=== PATIENT | male | born 1960 | race African-American/Black ===

== ENCOUNTER 2018-12-27 05:01 | Emergency (ER) | payer OTHER ==
[~2018-12-27] VITALS: Ht 175.3 cm; Wt 77.1 kg
[2018-12-27 05:10] VITALS: BP 140/90
--- NOTE | 2018-12-27 05:14 | Emergency Room Report ---
History of Present Illness General Chief Complaint: Chest Pain Source: Patient Present Illness HPI This is a 58-year-old male with no past medical history. He presents with chief complaint of chest pain. He was arrested and was at the police station when he start complaint of chest pain. He then became uncooperative with EMS. EKG was unremarkable. He refused to give any history. Here he told me that he has chest pain. Initially told me it was chronic he has it all the time. Then he said that he developed when he was at the police station. After that he refused to answer any other question. He is point all over his chest is area of pain. Unknown radiation. Unknown diaphoresis. Unknown description of the pain or rating. History is limited because of not cooperating. Allergies: Coded Allergies: UNABLE TO ASSESS (Unverified , 12/27/18) Patient History Past Medical History: none, see triage record, old chart reviewed Past Surgical History: none Pertinent Family History: none Social History: Denies: smoking Immunizations: other Reviewed Nursing Documentation: PMH: Agreed; PSxH: Agreed Nursing Documentation-PMH Past Medical History: Deferred Review of Systems Cardiovascular: Reports: chest pain All Other Systems: limited - Secondary to patient not cooperating Physical Exam Vital Signs Date Time Temp Pulse Resp B/P (MAP) Pulse Ox O2 Delivery O2 Flow Rate FiO2 12/27/18 05:05 97.9 71 16 140/90 (107) 98 Room Air Vitals normal except for elevation in blood pressure Sp02 EP Interpretation: reviewed, normal General Appearance: well appearing, no apparent distress, alert Head: normocephalic, atraumatic Eyes: bilateral eye PERRL, bilateral eye EOMI ENT: hearing grossly normal, normal pharynx Neck: full range of motion, supple, no meningismus Respiratory: chest non-tender, lungs clear, normal breath sounds Cardiovascular #1: regular rate, rhythm, no murmur Gastrointestinal: normal bowel sounds, non tender, no mass, no organomegaly, no bruit, non-distended Musculoskeletal: back normal, gait/station normal, normal range of motion Psychiatric: mood/affect normal Medical Decision Making Diagnostic Impression: Primary Impression: Chest pain Qualified Codes: R07.9 - Chest pain, unspecified Additional Impression: Cocaine abuse ER Course Patient with chest pain. Suspect malingering. No evidence of ACS, PE, dissection. Since this is a chronic issue, EKG is normal. Troponin negative. 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 EKG Diagnostic Results Rate: normal Rhythm: NSR ST Segments: no acute changes ASA given to the pt in ED: Yes Rhythm Strip Diag. Results EP Interpretation: yes Rate: 75 Rhythm: NSR, no PVC's, no ectopy Last Vital Signs Date Time Temp Pulse Resp B/P (MAP) Pulse Ox O2 Delivery O2 Flow Rate FiO2 12/27/18 05:05 97.9 71 16 140/90 (107) 98 Room Air Status: improved Disposition: D/C TO LAW ENF[facility] IN [facility] Condition: Stable Patient Instructions: Nonspecific Chest Pain Additional Instructions: Follow-up with your doctor in 7 days. Return if symptoms worsen. Timoteo Hall MD Dec 27, 2018 05:14
[2018-12-27] MEDS ORDERED: Aspirin Baby 81mg ORAL ONE (05:15)
[2018-12-27 05:43] VITALS: BP 140/90
--- NOTE | 2018-12-27 12:33 | Cardiology Report ---
APPROVED REPORT EKG Measurement Heart [id number] Normal sinus rhythm Normal ECG
== END 2018-12-27 05:43 ==
LOC: EDBD 05:01 → EMR 05:19
DX: R07.9 Chest pain, unspecified (principal); F14.10 Cocaine abuse, uncomplicated
CPT/HCPCS: 80307; 84484; 93005; 99283